=== PATIENT | male | born 1970 | race African-American/Black ===

== ENCOUNTER 2020-11-18 17:59 | Emergency (ER) | payer MEDICAID, SELFPAY ==
--- NOTE | ~2020-11-18 | CT_ITS ---
EXAMINATION: CTA chest PE abdomen pel EXAM DATE: 11/18/2020 23:20 INDICATION: Chest pain, sob, cancer. TECHNIQUE: Spiral CTA of the chest (pulmonary arteries) was performed with 100 cc Omnipaque 350 intr avenous contrast injection. Images were acquired during the pulmonary arterial phase. Coronal maxi mum intensity projection 3D-reconstructions were created by the technologist on dedicated workstation . Axial, coronal and sagittal reformatted images were reviewed. Spiral CT of the abdomen and pelvis was then performed with the same intravenous contrast injection. Axial, coronal and sagittal reform atted images were reviewed. The dose-length product (DLP) for this examination was 2129.15 mGy-cm. The exposure was tailored according to patient size (auto mA exposure control), and iterative recons truction (ASIR) was used as additional dose reduction technique. Comparison is made to prior examinat ion from 04/28/2015. FINDINGS: CHEST: Pulmonary arteries are well opacified and without intraluminal filling defects. No thoraci c aortic dissection. Mild diffuse bronchial wall thickening could indicate bronchitis, developed comp ared to 2014. The lungs are clear. There are no pleural or pericardial effusions. Tracheobronchia l tree is patent. There is no mediastinal, hilar or axillary lymphadenopathy. There is no pneumot horax. Heart normal in size. No evidence of coronary arterial calcification. ABDOMEN PELVIS: The liver, spleen, adrenal glands and pancreas are unremarkable. Gallbladder is unr emarkable. No biliary obstruction. Portal and splenic veins are patent. Kidneys enhance symmetrica lly. There is no hydronephrosis. The prostate is unremarkable. The bladder is unremarkable. Ther e is no retroperitoneal or pelvic lymphadenopathy. IVC filter. Left common iliac stent. The appendix is normal. There are several anastomosis sites. Moderate amount of colonic stool. Evidence of a prior right lower quadrant ostomy which has been internalized. Some presacral fat stranding, postoperative and/or radiation related change. The stomach and small bowel are unremarkable. There is expected a mount of colonic stool. No free intraperitoneal gas. There are no osteoblastic or osteolytic lesi ons identified. IMPRESSION: 1. Mild diffuse bronchial wall thickening could indicate bronchitis. 2. No pulmonary emboli or other acute chest, abdomen or pelvis findings. 3. Stable bowel, perirectal surgical changes. No evidence of metastatic disease. 4. Moderate colonic stool. Reviewed, dictated and finalized at location G. IMPRESSION: 1. Mild diffuse bronchial wall thickening could indicate bronchitis. 2. No pulmonary emboli or other acute chest, abdomen or pelvis findings. 3. Stable bowel, perirectal surgical changes. No evidence of metastatic diseas e. 4. Moderate colonic stool.
--- NOTE | ~2020-11-18 | XR_ITS ---
EXAMINATION: XR chest 2V EXAM DATE: 11/18/2020 19:08 INDICATION: Midsternal To Lt Sided Cp, Fever, Cough, Hx Colon Cancer. TECHNIQUE: Frontal and lateral projections of the chest obtained and reviewed. There is no prior aryan dy for comparison. FINDINGS: The lungs are clear. There are no pleural effusions. The cardiomediastinal silhouette is within normal limits. There is no pneumothorax suspected. The bones and soft tissues are unremarkab le. IMPRESSION: No acute cardiopulmonary findings. Reviewed, dictated and finalized at location A.
[2020-11-18 18:47] VITALS: BP 119/98; PULSE 80; RESP 16; TEMP 36.8; O2SAT 100
--- NOTE | 2020-11-18 18:51 | ECG_ITS ---
Measurements Intervals [place] Rate: 82 P: 52 RI: 126 QRS: 9 QRSD: 86 T: 7 QT: 349 QTc: 408 Interpretive Statements SINUS RHYTHM DELAYED PRECORDIAL R/S TRANSITION ST ELEVATION IN ANTEROLAT/HIGH LAT LEADS- PROBABLY EARLY REPOLARIZATION ABNORMALITY BASELINE WANDER- I, II, III BORDERLINE ECG Electronically Signed On 11-18-2020 20:30:21 CDT by Stevan Olivier D.O.
[2020-11-18 19:07] LABS: Basophils Percent Auto 0.4 % (0.2-1.2); Eosinophils Absolute Auto 0.1 K/mm3 (0-0.3); Eosinophils Percent Auto 0.8 % (0-4.4); Hemoglobin 15.1 g/dL (14.0-18.0); Immature Granulocyte Absolute 0.04 K/mm3 (0.00-0.031); Immature Granulocyte Percent A 0.4 % (0-0.5); Lymphocytes Absolute Auto 2.05 K/mm3 (0.9-3.2); Lymphocytes Percent Auto 21.6 % (18.3-44.2); Mean Corpuscular HGB Conc 32.8 g/dl (32-36); Mean Corpuscular Volume 88.3 fl (80-100); Mean Platelet Volume 8.5 fl (7.4-10.4); Monocytes Absolute Auto 0.9 K/mm3 (0.1-0.6); Monocytes Percent Auto 9.3 % (2.6-8.5); Neutrophils Absolute Auto 6.4 K/mm3 (1.3-6.7); Neutrophils Percent Auto 67.5 % (45.5-73.1); Platelet Count Result 230 k/mm3 (150-375); Red Blood Count 5.21 M/mm3 (4.6-6.20); Red Cell Distribution Width 13.4 % (11.5-14.5); White Blood Count 9.5 K/mm3 (4.5-10.0)
[2020-11-18 19:22] LABS: Anion Gap 10 mmol/L (8-16); Blood Urea Nitrogen 11 mg/dL (9-20); Calcium 9.7 mg/dL (8.4-10.2); Carbon Dioxide 24 mmol/L (22-30); Chloride 101 mmol/L (98-107); Estimated CRCL calculation 89 ml/min; Estimated Glomerular Filt Rate > 60; Glucose 103 mg/dL (75-110); Potassium 4.1 mmol/L (3.4-5.0); Sodium 135 mmol/L (137-145)
[2020-11-18 19:34] LABS: Troponin I < 0.012 ng/mL (0.000-0.034)
[2020-11-18 20:10] LABS: Prothrombin Time 12.4 Seconds (11.1-14.7)
[2020-11-18 20:11] LABS: INR 0.9; Partial Thromboplastin Time 26.9 SECONDS (22.3-36.8)
[2020-11-18 22:08] VITALS: BP 156/104; PULSE 73; RESP 22; TEMP 36.7; O2SAT 99
[2020-11-18 22:46] LABS: Troponin I < 0.012 ng/mL (0.000-0.034)
--- NOTE | 2020-11-18 22:54 | ED.GENADULT ---
HPI - General Adult General Chief complaint: Chest Pain Stated complaint: Fever Time Seen by Provider: 11/18/20 22:06 Source: patient and RN notes reviewed Mode of arrival: ambulatory Limitations: no limitations History of Present Illness HPI narrative: This is a 50 year old male with past history of colon cancer 8 years ago who presents for evaluation of multiple complaints. Patient states he developed cough productive with green sputum. He also reports having nightly episodes of being warm, flushed and sweaty. He reports during these episodes he has atypical left chest pain but denies associated nausea, sob or vomiting. He also reports severe months of epigastric discomfort that he describes as indigestion. This discomfort occurs with eating. He also reports of frequent episode of abdominal cramps that cause him to feel short of breath. He has not measured a fever with a thermometer. HE denies diarrhea or vomiting. He last bowel movement was 6 days ago . Related Data Home Medications Medication Instructions Recorded Confirmed hydrocodone-acetaminophen 11/18/20 penicillin V potassium 11/18/20 prednisone 11/18/20 Allergies Allergy/AdvReac Type Severity Reaction Status Date / Time No Known Allergies Allergy Verified 11/18/20 22:12 Review of Systems Review of Systems: All systems reviewed & are unremarkable except as noted in HPI and below Constitutional: Comments: sweats Cardiovascular: Cardiovascular: Reports chest pain Respiratory: Respiratory: Reports cough Gastrointestinal: Gastrointestinal: Reports abdominal pain (months), Reports constipation, Denies diarrhea and Denies vomiting Musculoskeletal: Musculoskeletal: Reports back pain and Reports muscle cramps PMFSH Past Medical History Medical History (Updated 11/19/20 @ 00:10 by Rosa De La Garza MD) Colon cancer Surgical History Surgical History (Updated 11/18/20 @ 22:57 by Rosa De La Garza MD) History of partial colectomy Exam Const: General: no acute distress and alert Orientation/consciousness: patient oriented x3 HENMT: Head: normocephalic and atraumatic Ears: TM's normal bilaterally Face and sinus: face symmetric Mouth: Yes Normal oral and palatal mucosa present, Yes lip normal, Yes oropharynx normal and Yes moist mucous membranes Eyes: Pupils: Equal, round and reactive pupils present EOM: EOMs intact bilaterally Chest: Chest palpation & inspection: tenderness (left anterior chest) Resp: Effort & Inspection: normal respiratory effort, not labored, retractions and not tachypneic Auscultation: no rales and wheezes (left upp) scattered wheezes and left upper Cardio: Rate: regular rate Rhythm: regular rhythm Heart sounds: no murmurs GI: GI Palp: Yes Soft to palpation, Yes Tenderness to palpation present (GI) (Diffuse) and No Guarding due to palpation present (GI) Auscultation: normal bowel sounds Skin: General skin exam: normal color Rashes: no rashes Neuro: General: patient oriented x3, moves all extremities and CN's II-XI intact bilaterally Extrem: General: no pedal edema Psych: Mental Status: mental status grossly normal Affect: normal affect Course Reevaluation(s) Reevaluation #1: I have discussed with patient CT report. He will be discharge for treatment of bronchitis and he will be swabbed for covid. He understands he will need to be quarantined Date: 11/19/20 Time: 00:05 Vital Signs Vital signs: Vital Signs Temperature 98.2 F 11/18/20 18:47 Pulse Rate 80 11/18/20 18:47 Respiratory Rate 16 11/18/20 18:47 Blood Pressure 119/98 H 11/18/20 18:47 Pulse Oximetry 100 11/18/20 18:47 Temperature 98.0 F 11/18/20 22:08 Pulse Rate 79 11/19/20 00:31 Respiratory Rate 18 11/19/20 00:31 Blood Pressure 118/81 11/19/20 00:31 Pulse Oximetry 98 11/19/20 00:31 Medical Decision Making Vital Signs Vital Signs: Vital Signs Temperature 98.2 F 11/18/20 18:47 Pulse Rate
[2020-11-18 23:12] LABS: Alanine Aminotransferase 18 U/L (4-50); Albumin Level 4.3 g/dL (3.5-5.1); Alkaline Phosphatase 90 U/L (38-126); Aspartate Amino Transferase 23 U/L (17-59); Bilirubin,Total 0.6 mg/dL (0.2-1.3); Lipase 145 U/L (23-300)
[2020-11-18 23:16] LABS: Magnesium 2.1 mg/dL (1.6-2.3)
[2020-11-18 23:33] VITALS: BP 120/80; PULSE 89; RESP 20; O2SAT 97
[2020-11-19 00:31] VITALS: BP 118/81; PULSE 79; RESP 18; O2SAT 98
[2020-11-19] MEDS: BENZONATATE 100 MG CAPSULE PO (00:40)
[2020-11-19] MEDS: predniSONE 20 MG TABLET 60 MG PO (00:41)
[2020-11-19 16:35] LABS: SARS-CoV-2 RNA PCR Negative
== END 2020-11-19 00:58 | disposition home or self-care (01) ==
PROVIDERS: Emergency Medicine; Emergency Provider General Practice
DX: R07.89 Other chest pain (principal); Z20.822 Contact with and (suspected) exposure to COVID-19; J40 Bronchitis, not specified as acute or chronic; M62.838 Other muscle spasm; Z85.038 Personal history of other malignant neoplasm of large intestine
CPT/HCPCS: 36415; 71046; 71275; 74177; 80048; 80076; 83690; 83735; 84484; 85025; 85610; 85730; 93005; 99284; A9270; C9803; J7512; Q9967; U0003; U0005